=== PATIENT | female | born 1980 | race Caucasian/White ===

== ENCOUNTER → 2018-03-06 | Outpatient (REF) ==
[2016-11-23 12:49] VITALS: BMI 29.4
[~2018-03-06] MED LIST: BCP PO; DIA5 PO; IBU800 PO; IBUP800T37 PO; KET10 PO; LEVO1IUD2 VG; LOR5/325 PO; OSE75 PO; OXYC-373 PO; TAMIFLU
[2018-03-06 15:37] LABS: LDL CHOLESTEROL 100 mg/dl
== END ==
DX: Z02.9 Encounter for administrative examinations, unspecified (principal)